=== PATIENT | male | born 1965 | race Asian ===

== ENCOUNTER 2021-02-10 08:48 | Inpatient (IN) | payer SELFPAY ==
[2021-02-10] MEDS ORDERED: Acetaminophen 325 MG TAB PO PRN (11:35)
[2021-02-10] MEDS ORDERED: Ondansetron PF 4 MG/2 ML Vial IVP PRN (11:35)
[2021-02-10] MEDS ORDERED: Ondansetron ODT 4 MG TAB PO PRN (11:35)
[2021-02-10] MEDS ORDERED: Morphine 2 MG/ML VIAL SLOW IVP PRN (11:49)
[2021-02-10 12:29] VITALS: BMI 25.8
[2021-02-10 12:36] LABS: Hemoglobin 15.1 g/dL (14.0-18.0); Mean Corpuscular HGB CONC 32.5 g/dL (32.0-36.0); Mean Corpuscular Hemoglobin 29.9 pg (27.0-31.0); Mean Corpuscular Volume 91.9 fL (78.0-98.0); Mean Platelet Volume 6.5 fL (7.4-10.4); Platelet Count 298 thou/uL (130-400); RBC Distribution Width 11.2 % (11.5-14.5); Red Blood Cell (RBC) Count 5.06 mill/uL (4.70-6.10); White Blood Cell (WBC) Count 13.4 thou/uL (4.8-10.8)
[2021-02-10 12:51] LABS: ALT (SGPT) Less than 7 U/L (8-55); AST (SGOT) 12 U/L (5-34); Albumin 4.1 g/dL (3.5-5.0); Alkaline Phosphatase 85 U/L (40-110); Anion Gap 11 mmol/L (10-20); BUN (Urea Nitrogen) 10 mg/dL (8.4-25.7); Calc. Creatinine Clearance 110 mL/min (70-130); Calcium 8.9 mg/dL (7.8-10.44); Carbon Dioxide 25 mmol/L (22-29); Chloride 104 mmol/L (98-107); Globulin 2.8 g/dL (2.4-3.5); Glucose 112 mg/dL (70-105); Potassium 4.2 mmol/L (3.5-5.1); Protein, Total 6.9 g/dL (6.0-8.3); Sodium 136 mmol/L (136-145)
[2021-02-10 13:07] LABS: Band 4 % (5-11); Lymphocytes 8 % (21-51); MDiff Complete? YES; Monocytes 2 % (0-10); Neutrophil 85 % (42-75); Platelet Morphology Comment Appears Adequate; RBC Morphology Normal; Reactive Lymphocytes 1 % (0-10)
[2021-02-10] MEDS: Lactated Ringer's 1,000 ML IV SCH ×2 (13:19→19:48)
[2021-02-10] MEDS: Morphine 4 MG/ML VIAL SLOW IVP PRN ×2 (15:07→19:55)
[2021-02-11 08:08] LABS: Hemoglobin 13.7 g/dL (14.0-18.0); Mean Corpuscular HGB CONC 32.5 g/dL (32.0-36.0); Mean Corpuscular Hemoglobin 29.8 pg (27.0-31.0); Mean Corpuscular Volume 91.8 fL (78.0-98.0); Mean Platelet Volume 6.4 fL (7.4-10.4); Platelet Count 267 thou/uL (130-400); Red Blood Cell (RBC) Count 4.59 mill/uL (4.70-6.10)
[2021-02-11 08:11] LABS: Band 6 % (5-11); Lymphocytes 8 % (21-51); MDiff Complete? YES; Monocytes 4 % (0-10); Neutrophil 81 % (42-75); Platelet Morphology Comment Appears Adequate; RBC Morphology Normal; Reactive Lymphocytes 1 % (0-10)
[2021-02-11] MEDS: Lactated Ringer's 1,000 ML IV SCH ×3 (09:08→22:30)
[2021-02-11] MEDS: Polyethylene Glycol 3350 17 GM Packet PO SCH (09:39)
[2021-02-11 11:42] LABS: Bacteria/HPF None Seen HPF (None Seen); Bilirubin Negative (Negative); Blood, Urine 2+ (Negative); Clarity Clear (Clear); Glucose, Urine (Dipstick) Normal (Negative); Ketone, Urine 20 mg/dL (Negative); Leukocyte Negative Leu/uL (Negative); Mucous/LPF Rare LPF (<2+); Nitrite Negative (Negative); Protein, Urine (Dipstick) Negative (Neg-Trace); Specific Gravity, Urine 1.013 (1.002-1.036); Squamous Epithelial None Seen HPF (0-3); Urobilinogen Normal mg/dL (Less than 2); WBC/HPF 0-3 HPF (0-3)
[2021-02-11 11:45] LABS: Urine Culture Reflex No No
[2021-02-11] MEDS: Enoxaparin Sodium 40 MG/0.4 ML SYRINGE SC SCH (15:14)
[2021-02-11] MEDS: metroNIDAZOLE 500 MG in Premix Bag 1 BAG IVPB SCH ×2 (15:15→22:28)
[2021-02-11] MEDS ORDERED: GoLYTELY 4,000 ml Bottle PO SCH (17:00)
[2021-02-11] MEDS ORDERED: Diclofenac 1% 100 GM GEL TP SCH (17:00)
[2021-02-12] MEDS: metroNIDAZOLE 500 MG in Premix Bag 1 BAG IVPB SCH ×3 (05:10→21:15)
[2021-02-12] MEDS: Enoxaparin Sodium 40 MG/0.4 ML SYRINGE SC SCH (09:01)
[2021-02-12] MEDS: Polyethylene Glycol 3350 17 GM Packet PO SCH (09:01)
[2021-02-12] MEDS: Lactated Ringer's 1,000 ML IV SCH ×2 (09:02→19:18)
[2021-02-12 09:10] LABS: #Monocytes 1.1 thou/uL (0.11-0.59); #Neutrophils 12.9 thou/uL (1.40-6.50); %Basophils 0.1 % (0.0-1.0); %Eosinophils 0.1 % (0.0-10.0); %Lymphocytes 6.9 % (21.0-51.0); %Neutrophils 85.9 % (42.0-75.0); Hemoglobin 13.5 g/dL (14.0-18.0); Mean Corpuscular HGB CONC 32.4 g/dL (32.0-36.0); Mean Corpuscular Hemoglobin 29.7 pg (27.0-31.0); Mean Corpuscular Volume 91.5 fL (78.0-98.0); Mean Platelet Volume 6.5 fL (7.4-10.4); Platelet Count 262 thou/uL (130-400); Red Blood Cell (RBC) Count 4.54 mill/uL (4.70-6.10); White Blood Cell (WBC) Count 15.1 thou/uL (4.8-10.8)
[2021-02-12] MEDS ORDERED: PROPOFOL 200 MG/20 ML VIAL ONE (11:27)
[2021-02-12] MEDS ORDERED: Erythromycin Base 250 MG TAB PO SCH (16:00)
[2021-02-12] MEDS ORDERED: Neomycin 500 mg Tablet PO SCH (16:00)
[2021-02-13] MEDS: Neomycin 500 mg Tablet PO SCH ×5 (00:05→23:53)
[2021-02-13] MEDS: Erythromycin Base 250 MG TAB PO SCH ×5 (00:05→23:52)
[2021-02-13] MEDS: Lactated Ringer's 1,000 ML IV SCH ×2 (00:06→06:05)
[2021-02-13] MEDS: metroNIDAZOLE 500 MG in Premix Bag 1 BAG IVPB SCH ×2 (05:06→19:50)
[2021-02-13] MEDS ORDERED: Lidocaine 1% (PF) 30 ML VIAL ONE (06:54)
[2021-02-13] MEDS ORDERED: Fentanyl 100 MCG/2 ML VIAL ONE ×2 (06:54→09:21)
[2021-02-13] MEDS ORDERED: Midazolam HCl 2 mg/2 ml Vial ONE (06:54)
[2021-02-13] MEDS: Polyethylene Glycol 3350 17 GM Packet PO SCH (09:22)
[2021-02-13] MEDS ORDERED: Ketorolac Tromethamine 30 MG/ML VIAL ONE (09:58)
[2021-02-13] MEDS ORDERED: Ondansetron PF 4 MG/2 ML Vial ONE (09:58)
[2021-02-13] MEDS ORDERED: Lidocaine 1% PF 5 ML VIAL ONE (09:58)
[2021-02-13] MEDS ORDERED: Rocuronium Bromide 10 MG/ML (10ML VIAL) ONE (09:58)
[2021-02-13] MEDS ORDERED: Bupivacaine HCl 0.5%/Epinephrine 1:200,000/PF 30 ml Vial ONE (09:58)
[2021-02-13] MEDS ORDERED: Labetalol HCl 100 MG/20 ML VIAL ONE (09:58)
[2021-02-13] MEDS ORDERED: Glycopyrrolate 0.2 MG/ML 5 ML SYRINGE ONE (09:58)
[2021-02-13] MEDS ORDERED: Dexamethasone 20 MG/5 ML VIAL ONE (09:58)
[2021-02-13] MEDS ORDERED: PROPOFOL 200 MG/20 ML VIAL ONE (09:58)
[2021-02-13] MEDS ORDERED: Promethazine HCl 25 MG/ML VIAL SLOW IVP PRN (10:29)
[2021-02-13] MEDS ORDERED: Promethazine HCl 25 MG/ML VIAL IM PRN (10:29)
[2021-02-13] MEDS ORDERED: Ondansetron HCl/PF 4 MG/2 ML Vial IVP PRN (10:29)
[2021-02-13] MEDS ORDERED: metroNIDAZOLE 500 MG/100 ML BAG ONE (10:44)
[2021-02-13] MEDS ORDERED: Levofloxacin 500 mg/D5W 100 ml Premix Bag ONE (10:44)
[2021-02-14] MEDS: metroNIDAZOLE 500 MG in Premix Bag 1 BAG IVPB SCH (04:53)
[2021-02-14] MEDS: Erythromycin Base 250 MG TAB PO SCH ×4 (06:17→23:54)
[2021-02-14] MEDS: Neomycin 500 mg Tablet PO SCH ×4 (06:17→23:54)
[2021-02-14] MEDS: Polyethylene Glycol 3350 17 GM Packet PO SCH (09:35)
[2021-02-14] MEDS: traMADol HCl 50 MG TAB PO SCH ×3 (09:42→21:09)
[2021-02-14] MEDS: Acetaminophen 325 MG TAB PO SCH ×3 (09:42→21:10)
[2021-02-14] MEDS ORDERED: CEFAZOLIN 2 GM in Premix Bag 1 BAG IVPB SCH (17:00)
[2021-02-14 19:57] VITALS: TEMP 97.8
[2021-02-15] MEDS: Acetaminophen 325 MG TAB PO SCH ×4 (02:15→14:16)
[2021-02-15] MEDS: traMADol HCl 50 MG TAB PO SCH ×3 (02:16→14:15)
[2021-02-15] MEDS ORDERED: Bupivacaine 0.25% HCL 30 ML VIAL ONE (06:35)
[2021-02-15] MEDS ORDERED: Lidocaine 1% w/Epinephrine 1:100K 20 ML VIAL ONE (06:35)
[2021-02-15] MEDS: Neomycin 500 mg Tablet PO SCH ×2 (07:28→14:10)
[2021-02-15] MEDS: Erythromycin Base 250 MG TAB PO SCH ×2 (07:28→14:09)
[2021-02-15] MEDS ORDERED: Midazolam HCl 2 mg/2 ml Vial ONE (10:25)
[2021-02-15] MEDS ORDERED: Propofol 500 MG/50 ML VIAL ONE (10:25)
[2021-02-15] MEDS ORDERED: Fentanyl 100 MCG/2 ML VIAL ONE (10:25)
[2021-02-15] MEDS ORDERED: Ketamine 50 MG/ML (10ML VIAL) ONE (10:25)
[2021-02-15] MEDS ORDERED: Promethazine HCl 25 MG/ML VIAL IM PRN (11:30)
[2021-02-15] MEDS ORDERED: Ondansetron HCl/PF 4 MG/2 ML Vial IVP PRN (11:30)
[2021-02-15] MEDS ORDERED: Promethazine HCl 25 MG/ML VIAL SLOW IVP PRN (11:30)
[2021-02-15] MEDS ORDERED: HYDROmorphone 2 MG/ML VIAL SLOW IVP PRN (11:30)
[2021-02-15] MEDS ORDERED: PACU-Morphine 4MG/ML VIAL SLOW IVP PRN (11:30)
[2021-02-15] MEDS: Polyethylene Glycol 3350 17 GM Packet PO SCH (14:11)
[2021-02-15 17:26] VITALS: BP 105/65
== END 2021-02-15 18:48 | disposition home or self-care (01) | DRG 330 ==
LOC: SJJU 09:44
PROVIDERS: ADMIT Family Medicine; ATTEND Family Medicine
PROC: 0DBN8ZX Excision of Sigmoid Colon, Via Natural or Artificial Opening Endoscopic, Diagnostic (ICD-10-PCS; 2021-02-12)
PROC: 0DBN0ZZ Excision of Sigmoid Colon, Open Approach (ICD-10-PCS; principal; 2021-02-13)
PROC: 0D1N0Z4 Bypass Sigmoid Colon to Cutaneous, Open Approach (ICD-10-PCS; 2021-02-13)
PROC: 0JH60WZ Insertion of Totally Implantable Vascular Access Device into Chest Subcutaneous Tissue and Fascia, Open Approach (ICD-10-PCS; 2021-02-15)
PROC: 02HV33Z Insertion of Infusion Device into Superior Vena Cava, Percutaneous Approach (ICD-10-PCS; 2021-02-15)
PROC: B518ZZA Fluoroscopy of Superior Vena Cava, Guidance (ICD-10-PCS; 2021-02-15)
DX: C19 Malignant neoplasm of rectosigmoid junction (principal); C79.11 Secondary malignant neoplasm of bladder; C79.19 Secondary malignant neoplasm of other urinary organs; K56.690 Other partial intestinal obstruction; Z20.822 Contact with and (suspected) exposure to COVID-19; F17.210 Nicotine dependence, cigarettes, uncomplicated; Z83.3 Family history of diabetes mellitus
CPT/HCPCS: 36415; 36416; 71045; 74019; 80053; 81001; 82378; 85007; 85025; 85027; 88305; C1788; J0690; J1100; J1642; J1650; J1885; J1956; J2001; J2250; J2270; J2405; J2704; J3010; S0020